=== PATIENT | female | born 1990 | race Caucasian/White ===

== ENCOUNTER → 2021-07-10 00:01 | Outpatient (BNVA) | payer OTHER, SELFPAY | PROVIDERS: Visit Provider Orthopaedic Surgery | DX: Z20.822 Contact with and (suspected) exposure to COVID-19 (principal); Z01.812 Encounter for preprocedural laboratory examination | CPT/HCPCS: 87635 ==

== ENCOUNTER 2021-07-13 08:27 | Day surgery (SDC) | payer OTHER, SELFPAY ==
[2021-07-12 12:38] VITALS: BMI 39.3
[2021-07-13 08:44] VITALS: BP 138/84; PULSE 68; RESP 16; TEMP 36.7; O2SAT 98
[2021-07-13 08:47] LABS: OR HCG Qualitative Urine Negative (Negative)
--- NOTE | 2021-07-13 09:21 | ANES.PREANE2 ---
Pre-Anesthetic Assessment Pre-Anesthetic Assessment: Height/Weight: Height 1.57 m Weight 97.522 kg Temp Pulse Resp BP Pulse Ox 98.1 F 68 16 138/84 98 07/13/21 08:44 07/13/21 08:44 07/13/21 08:44 07/13/21 08:44 07/13/21 08:44 Preop Diagnosis: Carpal tunnel syndrome Right wrist Proposed Procedure: Operation Date: 07/13/21 10:00 Proposed Procedures p Right Carpal Tunnel Release [id number] G56.00(Right) - Chacho Manzo MD Was Beta Maegan taken within 24 hours: N/A Was Clonidine taken within 24 hours: N/A Last intake: Intake Last Liquid Date 07/13/21 Last Liquid Time 07:00 Last Solid Date 07/12/21 Last Solid Time 23:00 Social: Social History: Alcohol and No tobacco Exam: Pre-Anes Outpt Exam: alert, oriented x 3, clear to auscultation bilaterally and regular rate & rhythm Airway: Submandibular: WNL Cervical ROM: WNL MP: 1 Dentition: Full History/ROS: No significant history except as noted Pulmonary: Pulmonary: Asthma (Exercise induced) CV/HEM: CV/HEM: None reported : Comments: Hx of nephrolithiasis Hepatic: Hepatic: None reported GI: GI: None reported Metabolic: Metabolic: None reported Neuropsych: Neuropsych: Anxiety Anesthetic Plan: ASA status: 2 Anesthesia: Anesthesia Evaluation, General and MAC Risk of > 500 ml blood loss (7ml/kg in children): No PFSH Anesthesia PFSH: Social History Smoking and tobacco status: never smoked Alcohol intake: current Alcohol intake frequency: holidays/special occasions only Female Reproductive History: Date of last menstrual period: 06/19/21 Data Anesthesia Other Labs: Laboratory Results - last 48 hr 07/13/21 08:39 Urine HCG, Qual Negative Cardiac Studies: No Data to Display
[2021-07-13] MEDS: sodium chloride 0.9% 1,000 ML 30 ML IV (09:36)
--- NOTE | 2021-07-13 10:42 | W.PM.OPSUD ---
Surgery/Procedure H&P Update DATE OF PROCEDURE: July 13, 2021 DATE H&P PERFORMED: 06/21/21 PREOP DIAGNOSIS: Carpal tunnel syndrome Right wrist PLANNED PROCEDURE: Operation Date: 07/13/21 10:00 Proposed Procedures p Right Carpal Tunnel Release [id number] G56.00(Right) - Chacho Manzo MD
--- NOTE | 2021-07-13 11:33 | PM.OP ---
Operative Report Date of procedure: July 13, 2021 Pre-op Diagnosis: Carpal tunnel syndrome Right wrist Post-op diagnosis: same Post-op Findings: Same Procedure Done: Right carpal tunnel release Pathology: none sent Anesthesia: Nerve Block (Rosa block) Estimated blood loss (mL): 2 Tourniquet time (min): 20 Findings: No masses or space-occupying lesion is seen in the carpal tunnel Condition: stable Disposition: PACU Procedure: Patient was taken to the operating room and anesthesia provided by the anesthesia service. She was prepped and draped with the arm exposed. A timeout was performed. A 3 cm long incision was made in line with the fourth ray from the distal edge of the carpal tunnel extending proximally. The subcutaneous fat and palmar fascia was divided with a scalpel blade. Under loupe magnification the ulnar neurovascular bundle was identified distally. A hemostat could be passed under the transverse carpal ligament allowing the distal 25% to be divided. A slotted guide was then passed beneath the transverse carpal ligament and the middle 50% divided. Blunt scissors were then passed over the guide freeing the proximal ligament. The tourniquet was deflated. Hemostasis provided with electrocautery. Wound edges were infiltrated with 10 cc of a half percent Marcaine solution. Skin edges were reapproximated with 3-0 Prolene. Sterile dressings were applied. The patient was taken to the recovery room in stable condition
[2021-07-13 11:37] VITALS: BP 103/65; PULSE 68; RESP 20; TEMP 36.2; O2SAT 94
[2021-07-13 11:40] VITALS: BP 103/65; PULSE 68; RESP 20; O2SAT 97
[2021-07-13 11:45] VITALS: BP 112/63; PULSE 63; RESP 18; TEMP 36.4; O2SAT 99
[2021-07-13 11:55] VITALS: BP 127/86; PULSE 64; RESP 14; TEMP 36.2; O2SAT 100
[2021-07-13 12:45] VITALS: BP 127/79; PULSE 71; RESP 16; TEMP 36.6; O2SAT 100
[2021-07-13] MEDS: HYDROcodone-acetaminophen 5-325 mg Tablet 1 TAB PO (12:50)
--- NOTE | 2021-07-13 13:22 | ANE.PACU2 ---
Inpatient post-anesthesia follow up: Airway intact: Yes Vital signs: Temperature 97.9 F Pulse Rate 71 Respiratory Rate 16 Blood Pressure 127/79 Pulse Oximetry 100 Oxygen Delivery Me thod Room Air Oxygen Flow Rate Fraction of Inspir ed Oxygen Hydration adequate: Yes Nausea and vomiting: Yes Pain level: 1 Mental status: Baseline
--- NOTE | 2021-07-13 13:23 | ANE.PACU2 ---
Inpatient post-anesthesia follow up: Airway intact: Yes Vital signs: Temperature 97.9 F Pulse Rate 71 Respiratory Rate 16 Blood Pressure 127/79 Pulse Oximetry 100 Oxygen Delivery Me thod Room Air Oxygen Flow Rate Fraction of Inspir ed Oxygen Hydration adequate: Yes Nausea and vomiting: No Pain level: 4 Mental status: Baseline
== END 2021-07-13 13:00 | disposition home or self-care (01) ==
PROVIDERS: Anesthesiology; Visit Provider Orthopaedic Surgery
PROC: (CPT 64721; principal; 2021-07-13 10:00)
DX: G56.01 Carpal tunnel syndrome, right upper limb (principal); F41.9 Anxiety disorder, unspecified
CPT/HCPCS: 64721; 84703; 96365; J0690; J2250; J2704; J3490; J7030

== ENCOUNTER → 2023-02-04 11:20 | Outpatient (BNVA) | payer OTHER, SELFPAY | PROVIDERS: PCP Family Medicine; Visit Provider Family Medicine | DX: Z01.419 Encounter for gynecological examination (general) (routine) without abnormal findings (principal); E55.9 Vitamin D deficiency, unspecified; R53.81 Other malaise; R53.83 Other fatigue; Z51.81 Encounter for therapeutic drug level monitoring; E03.9 Hypothyroidism, unspecified | CPT/HCPCS: 80053; 82306; 83540; 83550; 84439; 84443; 85025; 87624 ==

== ENCOUNTER → 2023-07-11 15:21 | Outpatient (BNVA) | payer OTHER, SELFPAY | PROVIDERS: PCP Family Medicine; Visit Provider Family Medicine | DX: Z23 Encounter for immunization (principal); E66.9 Obesity, unspecified; Z68.38 Body mass index [BMI] 38.0-38.9, adult | CPT/HCPCS: 86705; 86706; 86735; 86762; 86765; 86787; 87340 ==

== ENCOUNTER → 2024-10-30 10:19 | Outpatient (BNVA) | payer OTHER, SELFPAY | PROVIDERS: PCP Family Medicine; Visit Provider Family Medicine | DX: Z00.00 Encounter for general adult medical examination without abnormal findings (principal); R53.81 Other malaise; R53.83 Other fatigue; Z13.6 Encounter for screening for cardiovascular disorders; Z13.1 Encounter for screening for diabetes mellitus; Z51.81 Encounter for therapeutic drug level monitoring | CPT/HCPCS: 80053; 80061; 83036; 84439; 84443; 85025 ==